=== PATIENT | female | born 1965 | race Caucasian/White ===

== ENCOUNTER 2020-04-26 11:19 | Day surgery (SDC) | payer BC ==
[2020-04-26] MEDS ORDERED: Decadron 4 MG INJ IV ONE (11:20)
[2020-04-26] MEDS ORDERED: Xylocaine-Mpf 2% 5 Ml Vial IJ ONE (11:20)
[2020-04-26] MEDS ORDERED: Ketamine HCl 50 MG/ML ONE (12:48)
[2020-04-26] MEDS ORDERED: DIPRIVAN 200 MG/20 ML IV ONE (12:48)
--- NOTE | 2020-04-26 14:17 | XRAY ---
29 seconds fluoroscopy time in surgery for Left C2-C5 MBB.
--- NOTE | 2020-04-26 14:17 | XRAY ---
Indication: Left C2-C5 MBB. Intraoperative fluoroscopy provided for 29 seconds. 2 digital spot images submitted for interpretation demonstrates posterior needle tips projecting over the expected left C2-C5 nerve roots. Correlate with intraoperative findings and report. Incidental C4-C5 anterior fusion hardware/intervertebral spacer.
[2020-04-26] MEDS ORDERED: Lactated Ringers 1,000 ML IV ONE (16:21)
== END 2020-04-26 13:21 | disposition home or self-care (01) ==
LOC: SDC-PAIN 11:19
PROVIDERS: ATTEND Psychiatry & Neurology Pain Medicine
DX: M47.812 Spondylosis without myelopathy or radiculopathy, cervical region (principal); I10 Essential (primary) hypertension; E03.9 Hypothyroidism, unspecified; E78.5 Hyperlipidemia, unspecified; Z79.899 Other long term (current) drug therapy
CPT/HCPCS: 64490; 64491; 72020; 77002; J1100; J2704

== ENCOUNTER 2020-06-14 13:41 | Day surgery (SDC) | payer BC ==
[2020-06-14] MEDS ORDERED: Decadron 4 MG INJ IV ONE (13:42)
[2020-06-14] MEDS ORDERED: BUPIVACAINE 0.5% VIAL IJ ONE (13:42)
[2020-06-14] MEDS ORDERED: DIPRIVAN 200 MG/20 ML IV ONE (14:56)
[2020-06-14] MEDS ORDERED: Lactated Ringers 1,000 ML IV ONE (16:06)
--- NOTE | 2020-06-14 16:23 | XRAY ---
Indication: Left C2-C5 MBB. Intraoperative fluoroscopy provided for 30 seconds. 5 digital spot images submitted for interpretation demonstrates posterior needle tips projecting over the expected left C2-C5 nerve roots. Correlate with intraoperative findings/report. Incidental C4-C5 anterior fusion hardware.
--- NOTE | 2020-06-14 16:44 | XRAY ---
30 seconds fluoroscopy time in surgery for left C2-C5 MBB.
== END 2020-06-14 15:30 | disposition home or self-care (01) ==
LOC: SDC-PAIN 13:41
PROVIDERS: ATTEND Psychiatry & Neurology Pain Medicine
DX: M47.812 Spondylosis without myelopathy or radiculopathy, cervical region (principal); I10 Essential (primary) hypertension; E03.9 Hypothyroidism, unspecified; E78.5 Hyperlipidemia, unspecified; Z79.899 Other long term (current) drug therapy
CPT/HCPCS: 72040; 77002; J1100; J2704

== ENCOUNTER 2020-09-27 15:56 | Day surgery (SDC) | payer BC ==
[2020-09-27] MEDS ORDERED: Decadron 4 MG INJ IV ONE (15:57)
[2020-09-27] MEDS ORDERED: Marcaine Mpf 0.5% Vial 30 Ml IJ ONE (15:57)
[2020-09-27] MEDS ORDERED: Xylocaine 1% Vial 30 ML PF IJ ONE (15:57)
[2020-09-27] MEDS ORDERED: Lactated Ringers 1,000 ML IV ONE (16:39)
[2020-09-27] MEDS ORDERED: DIPRIVAN 200 MG/20 ML IV ONE (17:12)
--- NOTE | 2020-09-28 09:11 | XRAY ---
Indication: Left C2-C5 RFA. Intraoperative fluoroscopy provided for 32 seconds. 2 digital spot image submitted for interpretation demonstrates posterior needle tips projecting over the expected left C2-C5 nerve roots. Correlate with intraoperative findings/report. Incidental partially visualized anterior C4-C5 fusion hardware.
--- NOTE | 2020-09-28 15:50 | XRAY ---
32 seconds of fluoroscopy was used in surgery for a left C2-C5 RFA.
== END 2020-09-27 17:50 | disposition home or self-care (01) ==
LOC: SDC-PAIN 15:56
PROVIDERS: ATTEND Psychiatry & Neurology Pain Medicine
DX: M47.812 Spondylosis without myelopathy or radiculopathy, cervical region (principal); Z79.899 Other long term (current) drug therapy
CPT/HCPCS: 64633; 64634; 72040; 77002; J1100; J2001; J2704

== ENCOUNTER 2020-11-22 15:20 | Day surgery (SDC) | payer BC ==
[2020-11-22] MEDS ORDERED: Decadron 4 MG INJ IV ONE (15:21)
[2020-11-22] MEDS ORDERED: LIDOCAINE HCL 2% 100 MG/5 ML IJ ONE (15:21)
[2020-11-22] MEDS ORDERED: DIPRIVAN 200 MG/20 ML IV ONE (17:36)
[2020-11-22] MEDS ORDERED: Lactated Ringers 1,000 ML IV ONE (18:21)
--- NOTE | 2020-11-22 21:15 | XRAY ---
Indication: Right C2-C5 MBB. Intraoperative fluoroscopy provided for 18 seconds. 2 digital spot image submitted for interpretation demonstrates posterior needle tips projecting over the expected right C2-C5 nerve roots. Correlate with intraoperative findings/report. Incidental anterior C4-C5 fusion hardware.
--- NOTE | 2020-11-23 09:01 | XRAY ---
18 seconds fluoroscopy time in surgery for right C2-C5 MBB.
== END 2020-11-22 18:07 | disposition home or self-care (01) ==
LOC: SDC-PAIN 15:20
PROVIDERS: ATTEND Psychiatry & Neurology Pain Medicine
DX: M47.812 Spondylosis without myelopathy or radiculopathy, cervical region (principal); Z79.899 Other long term (current) drug therapy
CPT/HCPCS: 64490; 64491; 64492; 72040; 77002; J1100; J2704

== ENCOUNTER 2021-03-21 12:42 | Day surgery (SDC) | payer BC ==
[2021-03-21] MEDS ORDERED: BUPIVACAINE 0.5% VIAL IJ ONE (12:43)
[2021-03-21] MEDS ORDERED: Decadron 4 MG INJ IV ONE (12:43)
[2021-03-21] MEDS ORDERED: Lactated Ringers 1,000 ML IV ONE (15:10)
[2021-03-21] MEDS ORDERED: DIPRIVAN 200 MG/20 ML IV ONE (15:13)
--- NOTE | 2021-03-21 16:19 | XRAY ---
Indication: Right C2-C5 MBB. Intraoperative fluoroscopy provided for 29 seconds. 2 digital spot images submitted for interpretation demonstrates posterior needle tips projecting over the expected right C2-C5 nerve roots. Correlate with intraoperative findings/report. Incidental anterior C4-C5 fusion hardware.
--- NOTE | 2021-03-21 16:33 | XRAY ---
29 seconds fluoroscopy time in surgery for right C2-C5 MBB.
== END 2021-03-21 15:42 | disposition home or self-care (01) ==
LOC: SDC-PAIN 12:42
PROVIDERS: ATTEND Psychiatry & Neurology Pain Medicine
DX: M47.812 Spondylosis without myelopathy or radiculopathy, cervical region (principal); I10 Essential (primary) hypertension
CPT/HCPCS: 64490; 64491; 64492; 72040; 77002; J1100; J2704

== ENCOUNTER 2021-04-11 13:07 | Day surgery (SDC) | payer BC ==
[2021-04-11] MEDS ORDERED: Xylocaine 1% Vial 30 ML PF IJ ONE (13:08)
[2021-04-11] MEDS ORDERED: BUPIVACAINE 0.5% VIAL IJ ONE (13:08)
[2021-04-11] MEDS ORDERED: Decadron 4 MG INJ IV ONE (13:08)
[2021-04-11] MEDS ORDERED: Lactated Ringers 1,000 ML IV ONE (15:34)
[2021-04-11] MEDS ORDERED: DIPRIVAN 200 MG/20 ML IV ONE ×3 (15:35→15:57)
--- NOTE | 2021-04-11 16:53 | XRAY ---
Indication: Right C2-C4 RFA. Intraoperative fluoroscopy provided for 47 seconds. 2 digital spot image submitted for interpretation demonstrates posterior needle tips projecting over the expected right C2-C4 nerve roots. Correlate with intraoperative findings/report. Incidental anterior C4-C5 fusion hardware.
--- NOTE | 2021-04-11 17:04 | XRAY ---
47 seconds fluoroscopy time in surgery for right C2-C4 RFA.
== END 2021-04-11 16:20 | disposition home or self-care (01) ==
LOC: SDC-PAIN 13:07
PROVIDERS: ATTEND Psychiatry & Neurology Pain Medicine
DX: M47.812 Spondylosis without myelopathy or radiculopathy, cervical region (principal); Z79.899 Other long term (current) drug therapy
CPT/HCPCS: 01939; 64633; 64634; 72040; 77002; J1100; J2001; J2704

== ENCOUNTER 2021-05-09 10:57 | Day surgery (SDC) | payer BC ==
[2021-05-09] MEDS ORDERED: Decadron 4 MG INJ IV ONE (10:58)
[2021-05-09] MEDS ORDERED: BUPIVACAINE 0.5% VIAL IJ ONE (10:58)
[2021-05-09] MEDS ORDERED: Xylocaine 1% Vial 30 ML PF IJ ONE (10:58)
[2021-05-09] MEDS ORDERED: Lactated Ringers 1,000 ML IV ONE (12:55)
[2021-05-09] MEDS ORDERED: DIPRIVAN 200 MG/20 ML IV ONE ×2 (12:57→13:05)
--- NOTE | 2021-05-09 14:04 | XRAY ---
Indication: Left C2-C5 RFA. Intraoperative fluoroscopy provided for 36 seconds. 2 digital spot images submitted for interpretation demonstrates posterior needle tips projecting over the expected left C2-C5 nerve roots. Correlate with intraoperative findings/report. Incidental partially visualized anterior C4 fusion hardware.
--- NOTE | 2021-05-09 14:41 | XRAY ---
36 seconds fluoroscopy time in surgery for left C2-C5 RFA.
== END 2021-05-09 13:35 | disposition home or self-care (01) ==
LOC: SDC-PAIN 10:57
PROVIDERS: ATTEND Psychiatry & Neurology Pain Medicine
DX: M47.812 Spondylosis without myelopathy or radiculopathy, cervical region (principal); I10 Essential (primary) hypertension; Z79.899 Other long term (current) drug therapy
CPT/HCPCS: 01939; 64633; 64634; 72040; 77002; J1100; J2001; J2704

== ENCOUNTER 2022-05-29 14:12 | Day surgery (SDC) | payer BC ==
[2022-05-29] MEDS ORDERED: BUPIVACAINE 0.5% VIAL IJ ONE (14:13)
[2022-05-29] MEDS ORDERED: Decadron 4 MG INJ IV ONE (14:13)
[2022-05-29] MEDS ORDERED: LIDOCAINE HCL 1% 50 MG/5 ML VL PF IJ ONE (14:13)
[2022-05-29] MEDS ORDERED: DIPRIVAN 200 MG/20 ML IV ONE ×3 (15:39→15:57)
[2022-05-29] MEDS ORDERED: Lactated Ringers 1,000 ML IV ONE (16:19)
--- NOTE | 2022-05-29 16:39 | XRAY ---
Indication: Left C2-C5 RFA. Intraoperative fluoroscopy provided for 23 seconds. 2 digital spot image submitted for interpretation demonstrates posterior needle tips projecting over the expected left C2-C5 nerve roots. Correlate with intraoperative findings/report. Incidental anterior C4-C5 fusion hardware
--- NOTE | 2022-05-29 16:43 | XRAY ---
23 seconds of fluoroscopy was used in surgery for a left C2-C5 RFA.
== END 2022-05-29 16:30 | disposition home or self-care (01) ==
LOC: SDC-PAIN 14:12
PROVIDERS: ATTEND Psychiatry & Neurology Pain Medicine
DX: M47.812 Spondylosis without myelopathy or radiculopathy, cervical region (principal); Z79.899 Other long term (current) drug therapy
CPT/HCPCS: 64633; 64634; 72040; 77002; J1100; J2001; J2704

== ENCOUNTER 2022-06-12 11:52 | Day surgery (SDC) | payer BC ==
[2022-06-12] MEDS ORDERED: LIDOCAINE HCL 1% 50 MG/5 ML VL PF IJ ONE (11:53)
[2022-06-12] MEDS ORDERED: Decadron 4 MG INJ IV ONE (11:53)
[2022-06-12] MEDS ORDERED: BUPIVACAINE 0.5% VIAL IJ ONE (11:53)
[2022-06-12] MEDS ORDERED: DIPRIVAN 200 MG/20 ML IV ONE ×2 (12:54→13:01)
[2022-06-12] MEDS ORDERED: Lactated Ringers 1,000 ML IV ONE (14:47)
--- NOTE | 2022-06-12 18:14 | XRAY ---
Indication: Right C2-C5 RFA. Intraoperative fluoroscopy provided for 33 seconds. 7 digital spot image submitted for interpretation demonstrates posterior needle tips projecting over the expected right C2-C5 nerve roots. Correlate with intraoperative findings/report. Incidental partially visualized lower cervical fusion hardware.
--- NOTE | 2022-06-12 19:01 | XRAY ---
33 seconds for fluoroscopy was used in surgery for a right C2-C5 RFA.
== END 2022-06-12 13:30 | disposition home or self-care (01) ==
LOC: SDC-PAIN 11:52
PROVIDERS: ATTEND Psychiatry & Neurology Pain Medicine
DX: M47.812 Spondylosis without myelopathy or radiculopathy, cervical region (principal); Z79.899 Other long term (current) drug therapy
CPT/HCPCS: 64633; 64634; 72040; 77002; J1100; J2001; J2704

== ENCOUNTER 2023-07-02 13:34 | Day surgery (SDC) | payer BC ==
[2023-07-02] MEDS ORDERED: BUPIVACAINE 0.5% VIAL IJ ONE (13:35)
[2023-07-02] MEDS ORDERED: XYLOCAINE-MPF 1% 5ML SDV IJ ONE (13:35)
[2023-07-02] MEDS ORDERED: Decadron 4 MG INJ IV ONE (13:35)
[2023-07-02] MEDS ORDERED: Lactated Ringers 1,000 ML IV ONE (15:02)
[2023-07-02] MEDS ORDERED: DIPRIVAN 200 MG/20 ML IV ONE ×2 (15:34→15:44)
--- NOTE | 2023-07-02 17:17 | XRAY ---
Indication: Left C2-C5 RFA. Intraoperative fluoroscopy provided for 26 seconds. 4 digital spot images submitted for interpretation demonstrates posterior needle tips projecting over the expected left C2-C5 nerve roots. Correlate with intraoperative findings/report. Incidental lower cervical fusion hardware.
--- NOTE | 2023-07-02 17:20 | XRAY ---
26 seconds of fluoroscopy was used in surgery for a left C2-C5 RFA.
== END 2023-07-02 16:15 | disposition home or self-care (01) ==
LOC: SDC-PAIN 13:34
PROVIDERS: ATTEND Psychiatry & Neurology Pain Medicine
DX: M47.812 Spondylosis without myelopathy or radiculopathy, cervical region (principal)
CPT/HCPCS: 64633; 64634; 72040; 77002; J1100; J2704

== ENCOUNTER 2023-07-16 11:03 | Day surgery (SDC) | payer BC ==
[2023-07-16] MEDS ORDERED: Decadron 4 MG INJ IV ONE (11:04)
[2023-07-16] MEDS ORDERED: BUPIVACAINE 0.5% VIAL IJ ONE (11:04)
[2023-07-16] MEDS ORDERED: LIDOCAINE HCL 1% 50 MG/5 ML VL PF IJ ONE (11:04)
[2023-07-16] MEDS ORDERED: DIPRIVAN 200 MG/20 ML IV ONE ×2 (12:40→12:54)
[2023-07-16] MEDS ORDERED: SUBLIMAZE 100 MCG/2 ML ONE (12:52)
[2023-07-16] MEDS ORDERED: DEXMEDETOMIDINE 80 MCG/20ML-NS IV ONE (12:55)
[2023-07-16] MEDS ORDERED: Lactated Ringers 1,000 ML IV ONE (13:10)
--- NOTE | 2023-07-16 15:27 | XRAY ---
Indication: Right C2-C5 RFA. Intraoperative fluoroscopy provided for 36 seconds. 9 digital spot images submitted for interpretation demonstrates posterior needle tip projecting over the expected right C2-C5 nerve roots. Correlate with intraoperative findings/report. Incidental incompletely visualized lower cervical fusion hardware
--- NOTE | 2023-07-16 15:35 | XRAY ---
36 seconds of fluoroscopy was used in surgery for a right C2-C5 RFA.
== END 2023-07-16 13:25 | disposition home or self-care (01) ==
LOC: SDC-PAIN 11:03
PROVIDERS: ATTEND Psychiatry & Neurology Pain Medicine
DX: M47.812 Spondylosis without myelopathy or radiculopathy, cervical region (principal)
CPT/HCPCS: 64633; 64634; 72040; 77002; J1100; J2001; J2704; J3010

== ENCOUNTER 2023-10-01 14:26 | Day surgery (SDC) | payer BC ==
[2023-10-01] MEDS ORDERED: Depo-Medrol 40 MG/ML IM ONE (14:27)
[2023-10-01] MEDS ORDERED: BUPIVACAINE 0.5% VIAL IJ ONE (14:27)
[2023-10-01] MEDS ORDERED: LIDOCAINE HCL 1% 50 MG/5 ML VL PF IJ ONE (14:27)
[2023-10-01] MEDS ORDERED: DIPRIVAN 200 MG/20 ML IV ONE ×2 (16:49→16:57)
--- NOTE | 2023-10-01 17:11 | XRAY ---
Indication: Bilateral hip and greater trochanter bursa injection. Intraoperative fluoroscopy provided for 25 seconds. 5 digital spot images submitted for interpretation demonstrates needle tips projecting lateral to left/right femur necks and lateral to left/right greater trochanters. Small amount of contrast injected for all needle tip placement. Correlate with intraoperative findings/report.
[2023-10-01] MEDS ORDERED: Lactated Ringers 1,000 ML IV ONE (17:24)
--- NOTE | 2023-10-02 10:02 | XRAY ---
25 seconds of fluoroscopy was used in surgery for a bilateral intra-articular hip and greater trochanteric bursa injection.
== END 2023-10-01 17:17 | disposition home or self-care (01) ==
LOC: SDC-PAIN 14:26
PROVIDERS: ATTEND Psychiatry & Neurology Pain Medicine
DX: M16.0 Bilateral primary osteoarthritis of hip (principal); M70.62 Trochanteric bursitis, left hip; M70.61 Trochanteric bursitis, right hip
CPT/HCPCS: 20610; 73522; 77002; J2001; J2704; Q9966

== ENCOUNTER 2023-12-31 14:32 | Day surgery (SDC) | payer BC ==
[2023-12-31] MEDS ORDERED: BUPIVACAINE 0.5% VIAL IJ ONE (14:33)
[2023-12-31] MEDS ORDERED: Depo-Medrol 40 MG/ML IM ONE (14:33)
[2023-12-31] MEDS ORDERED: LIDOCAINE HCL 1% AMPUL 5 ML IJ ONE (14:33)
[2023-12-31] MEDS ORDERED: DIPRIVAN 200 MG/20 ML IV ONE (16:24)
--- NOTE | 2023-12-31 18:36 | XRAY ---
Indication: Bilateral hip injection. Intraoperative fluoroscopy provided for 1 minute 2 seconds. 2 digital spot images submitted for interpretation demonstrates needle tips projecting lateral to left/right femur necks. Small amount of contrast injected for both needle tip placement. Correlate with intraoperative findings/report.
--- NOTE | 2024-01-01 09:21 | XRAY ---
One minute and 2 seconds of fluoroscopy was used in surgery for a bilateral intra-articular hip injection.
== END 2023-12-31 16:57 | disposition home or self-care (01) ==
LOC: SDC-PAIN 14:32
PROVIDERS: ATTEND Psychiatry & Neurology Pain Medicine
DX: M16.0 Bilateral primary osteoarthritis of hip (principal)
CPT/HCPCS: 20610; 73521; 77002; J2704; Q9966

== ENCOUNTER 2024-04-14 07:04 | Day surgery (SDC) | payer BC ==
[2024-04-14] MEDS ORDERED: BUPIVACAINE 0.5% VIAL IJ ONE (07:05)
[2024-04-14] MEDS ORDERED: Depo-Medrol 40 MG/ML IM ONE (07:05)
[2024-04-14] MEDS ORDERED: propofoL IV ONE ×2 (08:25→08:32)
[2024-04-14] MEDS ORDERED: MORPHINE SULFATE 2 MG INJ ONE (08:47)
--- NOTE | 2024-04-14 10:00 | XRAY ---
Indication: Bilateral hip and greater trochanter bursa injection. Intraoperative fluoroscopy provided for 35 seconds. 4 digital spot image submitted for interpretation demonstrates needle tips projecting lateral to left/right femur necks and left/right greater trochanters. Small amount of contrast injected for all needle tip placement. Correlate with intraoperative findings/report.
--- NOTE | 2024-04-14 10:56 | XRAY ---
35 seconds of fluoroscopy was used in surgery for bilateral intra-articular hip injections and bilateral greater trochanteric bursa injections.
== END 2024-04-14 09:06 | disposition home or self-care (01) ==
LOC: SDC-PAIN 07:04
PROVIDERS: ATTEND Psychiatry & Neurology Pain Medicine
DX: M16.0 Bilateral primary osteoarthritis of hip (principal); M70.62 Trochanteric bursitis, left hip; M70.61 Trochanteric bursitis, right hip
CPT/HCPCS: 20610; 73522; 77002; J2270; J2704; Q9966